=== PATIENT | female | born 1960 | race Caucasian/White ===

== ENCOUNTER → 2019-12-13 | Outpatient (REF) | payer BC, SELFPAY | END | disposition home or self-care (01) | LOC: ANHLAB 11:33 | PROVIDERS: PCP Otolaryngology; Visit Provider Nurse Practitioner | DX: D49.2 Neoplasm of unspecified behavior of bone, soft tissue, and skin (principal) | CPT/HCPCS: 88305 ==

== ENCOUNTER → 2020-03-23 15:30 | Outpatient (REF) | payer BC, SELFPAY | LOC: ANHLAB 15:30 | PROVIDERS: PCP Otolaryngology; Visit Provider Nurse Practitioner | DX: D49.2 Neoplasm of unspecified behavior of bone, soft tissue, and skin (principal) | CPT/HCPCS: 88305 ==

== ENCOUNTER 2023-02-20 16:12 | Outpatient (NON) | payer OTHER, SELFPAY | END 2023-02-20 16:13 | disposition home or self-care (01) | PROVIDERS: PCP Otolaryngology; Visit Provider Nurse Practitioner | DX: L72.0 Epidermal cyst (principal) | CPT/HCPCS: 88304 ==